=== PATIENT | male | born 1990 | race Caucasian/White ===

== ENCOUNTER 2024-08-02 19:23 | Emergency (ER) | payer OTHER ==
[~2024-08-02] VITALS: Ht 177.8 cm; Wt 77.1 kg
[2024-08-02 21:55] VITALS: BP 135/80; TEMP 98; O2SAT 96
== END 2024-08-02 21:56 | disposition left against medical advice (07) ==
LOC: ER 19:24
DX: R07.81 Pleurodynia (principal); Z53.21 Procedure and treatment not carried out due to patient leaving prior to being seen by health care provider